=== PATIENT | male | born 1995 | race Caucasian/White ===

== ENCOUNTER 2018-09-24 11:14 | Outpatient (RCR) | payer OTHER | END 2018-12-23 | disposition home or self-care (01) | LOC: WSOH | DX: S61.412A Laceration without foreign body of left hand, initial encounter (principal); S60.222A Contusion of left hand, initial encounter; W23.0XXA Caught, crushed, jammed, or pinched between moving objects, initial encounter; Y99.0 Civilian activity done for income or pay ==